=== PATIENT | male | born 1960 | race Caucasian/White ===

== ENCOUNTER 2017-06-18 13:50 | Emergency (ER) | payer BC ==
[2017-06-18 15:03] VITALS: BP 135/80
[2017-06-18] MEDS ORDERED: Ibuprofen TAB* 600 MG PO ONE (15:23)
--- NOTE | 2017-06-18 15:33 | UC ---
Hand/Wrist HPI - HPI Summary HPI Summary: While fielding a softball last night jammed R 3rd finger. Today has lots of swelling, bruising, and stiffness. - History Of Current Complaint Chief Complaint: UCUpperExtremity Stated Complaint: RIGHT MIDDLE FINGER INJURY Time Seen by Provider: 06/18/17 15:12 Hx Obtained From: Patient ?: No Onset/Duration: Sudden Onset Severity Initially: Moderate Severity Currently: Moderate Character Of Pain: Dull, Aching, Stiffness Aggravating Factor(s): Movement, Flexion, Extension Associated Signs And Symptoms: Positive: Swelling, Bruising Related History: Dominant Hand Right - Allergies/Home Medications Allergies/Adverse Reactions: Allergies Allergy/AdvReac Type Severity Reaction Status Date / Time No Known Drug Allergy Allergy Unknown Verified 06/18/17 14:57 Reaction Details Home Medications: Home Medications NK [No Home Medications Reported] 06/18/17 [History Confirmed 06/18/17] PMH/Surg Hx/FS Hx/Imm Hx Previously Healthy: Yes - Surgical History Surgical History: None - Family History Known Family History: Positive: Hypertension - Social History Lives: With Family Alcohol Use: Occasionally Alcohol Amount: 4 drinks per week. Substance Use Type: None Smoking Status (MU): Never Smoked Tobacco Have You Smoked in the Last Year: No Household Exposure Type: Cigarettes - Immunization History Most Recent Influenza Vaccination: NONE 2015 Most Recent Tetanus Shot: UTD Most Recent Pneumonia Vaccination: N/A Review of Systems Constitutional: Negative Skin: Negative Eyes: Negative ENT: Negative Respiratory: Negative Cardiovascular: Negative Gastrointestinal: Negative Genitourinary: Negative Motor: Negative Neurovascular: Negative Musculoskeletal: Arthralgia, Decreased ROM Neurological: Negative Psychological: Negative All Other Systems Reviewed And Are Negative: Yes Physical Exam Triage Information Reviewed: Yes Appearance: Well-Appearing, No Pain Distress, Well-Nourished Vital Signs: Initial Vital Signs Temp 98 F 06/18/17 14:57 Pulse 68 06/18/17 14:57 Resp 16 06/18/17 14:57 BP 135/80 06/18/17 14:57 Pulse Ox 98 06/18/17 14:57 Vital Signs Reviewed: Yes Eye Exam: Normal, Other - PERRL Eyes: Positive: Conjunctiva Clear ENT Exam: Normal ENT: Positive: Normal ENT inspection, Hearing grossly normal, Pharynx normal, TMs normal Dental Exam: Normal Neck exam: Normal Neck: Positive: Supple, Nontender, No Lymphadenopathy Respiratory Exam: Normal Respiratory: Positive: Chest non-tender, Lungs clear, Normal breath sounds, No respiratory distress, No accessory muscle use Cardiovascular Exam: Normal Cardiovascular: Positive: RRR, No Murmur Musculoskeletal Exam: Other - swelling, bruising, tenderness over R 3rd PIP Musculoskeletal: Positive: ROM Limited @ - R 3rd finger Neurological Exam: Normal Neurological: Positive: Alert Psychological Exam: Normal Skin Exam: Other - swelling, bruising R 3rd finger Hand/Wrist Course/Dx - Differential Dx/Diagnosis Provider Diagnoses: R 3rd finger middle phalangeal fracture oblique, closed, displaced, intra-articular - Physician Notifications Discussed Patient Care With: Dr. Celaya Time Discussed With Above Provider: 16:20 Instructed by Provider To: Have Pt Call For Appt. - Will see pt Tuesday Discharge - Discharge Plan Condition: Stable Disposition: HOME Patient Education Materials: Finger Fracture (ED) Forms: *Work Release Referrals: Radha Celaya MD [Medical Doctor] - 2 Days Additional Instructions: As we discussed, I recommend you see an orthopedist soon for follow-up. Please call Dr. Celaya's office Tuesday so she can see you.
--- NOTE | 2017-06-18 15:55 | RAD ---
INDICATION: Right middle finger injury. TECHNIQUE: 4 views of the right middle finger were obtained. FINDINGS: There is diffuse soft tissue swelling throughout the finger. There is an oblique fracture of the middle phalanx which involves the majority of the bone extending from the distal portion to the proximal articular margin. The fracture appears mildly comminuted. The major distal fragment is displaced anterior one cortical diameter and overriding the proximal fragment. IMPRESSION: OBLIQUE DISPLACED INTRA-ARTICULAR FRACTURE OF THE MIDDLE PHALANX.
== END 2017-06-18 16:25 | disposition home or self-care (01) ==
LOC: UCCORT 13:50
DX: S62.632A Displaced fracture of distal phalanx of right middle finger, initial encounter for closed fracture (principal); W20.8XXA Other cause of strike by thrown, projected or falling object, initial encounter; Y93.64 Activity, baseball; Y92.320 Baseball field as the place of occurrence of the external cause; Z77.22 Contact with and (suspected) exposure to environmental tobacco smoke (acute) (chronic)
CPT/HCPCS: 73140; 99212; A9270-GY; G0463